=== PATIENT | female | born 1970 | race Native Hawaiian/Other Pacific Islander ===

== ENCOUNTER 2016-06-03 16:09 | Outpatient (CLI) | payer BC | END 2016-06-03 19:07 | disposition home or self-care (01) | LOC: MAMMO 16:09 | DX: Z12.31 Encounter for screening mammogram for malignant neoplasm of breast (principal) | CPT/HCPCS: G0202-TC ==

== ENCOUNTER 2017-07-27 10:49 | Outpatient (CLI) | payer BC | END 2017-07-27 23:19 | disposition home or self-care (01) | LOC: MAMMO 10:49 | DX: Z12.31 Encounter for screening mammogram for malignant neoplasm of breast (principal) ==

== ENCOUNTER 2018-10-29 07:54 | Emergency (ER) | payer BC ==
[~2018-10-29] VITALS: Ht 175.3 cm; Wt 63.0 kg
[2018-10-29 10:10] VITALS: BP 119/79; TEMP 98.3
== END 2018-10-29 10:12 | disposition home or self-care (01) ==
LOC: ED 07:54
DX: M25.512 Pain in left shoulder (principal)
CPT/HCPCS: 96372; 99283; J1885; J2360

== ENCOUNTER 2021-06-19 15:37 | Outpatient (CLI) | payer BC | END 2021-06-19 21:01 | disposition home or self-care (01) | LOC: US 15:37 | PROVIDERS: ATTEND Nurse Practitioner Family | DX: R94.6 Abnormal results of thyroid function studies (principal) ==

== ENCOUNTER 2021-08-13 09:02 | Outpatient (CLI) | payer BC | END 2021-08-13 19:14 | disposition home or self-care (01) | LOC: NM 09:02 | PROVIDERS: ATTEND Nurse Practitioner Family | DX: R94.6 Abnormal results of thyroid function studies (principal) | CPT/HCPCS: A9516 ==

== ENCOUNTER 2022-01-12 10:11 | Outpatient (CLI) | payer BC | END 2022-01-12 19:58 | disposition home or self-care (01) | LOC: LABW 10:11 | PROVIDERS: ATTEND Internal Medicine Endocrinology, Diabetes & Metabolism | DX: E04.1 Nontoxic single thyroid nodule (principal) | CPT/HCPCS: 36415; 84439; 84443; 84480; 84481 ==

== ENCOUNTER 2022-04-19 11:33 | Outpatient (CLI) | payer BC | END 2022-04-19 21:48 | disposition home or self-care (01) | LOC: LABW 11:33 | PROVIDERS: ATTEND Internal Medicine Endocrinology, Diabetes & Metabolism | DX: E53.8 Deficiency of other specified B group vitamins (principal); E04.1 Nontoxic single thyroid nodule; R79.89 Other specified abnormal findings of blood chemistry | CPT/HCPCS: 36415; 82306; 82607; 82746; 84439; 84443; 84480; 84481; 86800 ==

== ENCOUNTER 2022-08-18 13:20 | Outpatient (CLI) | payer BC | END 2022-08-18 18:55 | disposition home or self-care (01) | LOC: LABW 13:20 | PROVIDERS: ATTEND Internal Medicine Endocrinology, Diabetes & Metabolism | DX: E53.8 Deficiency of other specified B group vitamins (principal); E04.1 Nontoxic single thyroid nodule; R79.89 Other specified abnormal findings of blood chemistry | CPT/HCPCS: 36415; 82306; 82607; 82746; 84439; 84443; 84480; 84481 ==